=== PATIENT | female | born 1970 | race Two or more races ===

== ENCOUNTER → 2021-01-17 | Outpatient (CLI) | payer OTHER ==
[~2021-01-17] MED LIST: HYDR-3164 PO
--- NOTE | 2021-01-17 13:57 | RAD ---
EXAM: Pelvic sonogram. HISTORY: Right lower quadrant pain. TECHNIQUE: Sonographic imaging of the pelvis was performed. COMPARISON: None. FINDINGS: The uterus measures 7.6 x 6.0 x 4.6 cm. The endometrial stripe measures 7.3 mm in thickness . The ovaries are normal in size and demonstrate normal blood flow. There is a 1.2 cm left ovarian fo llicle/follicular cyst with internal septation. No hernia or lymphadenopathy is seen. There is no pel fernie free fluid. IMPRESSION: 1. 1.2 cm left ovarian follicle/follicular cyst with internal septation. 2. Otherwise, unremarkable pelvic sonogram. Electronically signed by: Kiki Crowley MD (01/17/2021 1:55 PM) [id number]
== END ==
LOC: US 11:47
PROVIDERS: ATTEND Family Medicine
DX: N83.02 Follicular cyst of left ovary (principal); R10.813 Right lower quadrant abdominal tenderness
CPT/HCPCS: 76830; 76856